=== PATIENT | female | born 1985 | race Caucasian/White ===

== ENCOUNTER 2017-08-17 20:01 | Emergency (ER) | payer OTHER ==
[~2017-08-17] VITALS: Ht 157.5 cm; Wt 114.6 kg
[~2017-08-17 20:01] MED LIST: ANTIVERT25 MG PO; ENDOCET 5-3251 EACH PO; MOTRIN800 MG; MOTRIN800 MG PO; MUCINEX D ER T1 EACH PO; NORVASC2.5 MG PO; NUVARING VAGIN1 EACH VG; PREFERA-OB P1 TABLET PO; RANITIDINE HCL150 MG PO; TENORMIN100 MG PO; ZANTAC150 MG PO; ZYRTEC10 M3 PO
[2017-08-17 20:40] LABS: HEMATOCRIT 39.4 % (36.0-46.0); HEMOGLOBIN 13.5 G/DL (11.9-15.5); MCH 30.3 PG (29.0-34.0); MCHC 34.3 G/DL (30.0-36.0); MCV 88.5 FL (83-99); PLATELET COUNT 284 K/uL (156-360); RBC DIS.WIDTH-CV 12.4 % (11.8-14.6); RBC DIS.WIDTH-SD 39.9 % (39-53); RED BLOOD COUNT 4.45 M/uL (3.80-5.20); WHITE BLOOD COUNT 7.7 K/uL (4.1-10.2)
[2017-08-17 20:51] LABS: CHLORIDE 103 mEq/L (99-109); POTASSIUM 3.9 mEq/L (3.7-5.4); SODIUM 141 mEq/L (136-147)
[2017-08-17 20:53] LABS: GLUCOSE 98 mg/dL (70-99)
[2017-08-17 20:56] LABS: CREATININE 0.7 mg/dL (0.6-1.3); GFR ESTIMATE (CALCULATED) > 59 mL/min/
[2017-08-17 20:57] LABS: UREA NITROGEN (BUN) 14 mg/dL (9-23)
[2017-08-17 21:07] LABS: TROP-I INTERPRETATION NEGATIVE; TROPONIN-I 0.01 ng/mL (0.0-0.30)
[2017-08-18 01:37] VITALS: BP 117/64
== END 2017-08-18 01:40 | disposition home or self-care (01) ==
LOC: EME 20:01
DX: I10 Essential (primary) hypertension (principal); M79.89 Other specified soft tissue disorders; M79.604 Pain in right leg; M79.605 Pain in left leg; R42 Dizziness and giddiness; Z91.14 Patient's other noncompliance with medication regimen
CPT/HCPCS: 71046; 80048; 84484; 85027; 93005; 93970; 99281; 99284